=== PATIENT | female | born 1960 | race Hispanic/Latino ===

== ENCOUNTER 2017-12-26 16:39 | Emergency (ER) | payer OTHER ==
[2017-12-26] MEDS ORDERED: predniSONE 20 MG TAB ONE (17:25)
[2017-12-26] MEDS ORDERED: FAMOTIDINE 20 MG TAB ONE (17:25)
[2017-12-26] MEDS ORDERED: DIPHENHYDRAMINE 25 MG TAB/CAP ONE (17:25)
--- NOTE | 2017-12-26 18:14 | EDPHYS ---
Physician Documentation [facility] Name: Sridevi Fernandez Age: 57 yrs Sex: Female : 1960 Arrival Date: 12/26/2017 Time: 16:46 Bed 16 Private MD: ED Physician Chip Sanchez HPI: 12/26 18:09 This 57 yrs old Female presents to ER via Ambulatory with complaints of gs Allergic Reaction. 18:09 The patient presents with itching, rash. Onset: The symptoms/episode began/occurred 3 gs day(s) ago. Associated signs and symptoms: Pertinent positives: hives, rash, Pertinent negatives: chest pain, dysphagia, shortness of breath. Possible causes: antibiotics, penicillin. Severity of symptoms: At their worst the symptoms were moderate in the emergency department the symptoms are unchanged. The patient has experienced similar episodes in the past, a few times. Historical: - Allergies: 17:13 No Known Allergies; jl7 - PMHx: 17:13 Breast Cancer with mets to bone and ovarian; jl7 - PSHx: 17:13 Mastectomy, Left; jl7 - Immunization history:: Adult Immunizations unknown. - Social history:: Smoking status: Patient/guardian denies using tobacco. - Ebola Screening: : No symptoms or risks identified at this time. ROS: 18:09 All other systems are negative. gs Exam: 18:09 Head/Face: Normocephalic, atraumatic. Eyes: Pupils equal round and reactive to light, gs extra-ocular motions intact. Lids and lashes normal. Conjunctiva and sclera are non-icteric and not injected. Cornea within normal limits. Periorbital areas with no swelling, redness, or edema. Neck: Trachea midline, no thyromegaly or masses palpated, and no cervical lymphadenopathy. Supple, full range of motion without nuchal rigidity, or vertebral point tenderness. No Meningismus. Chest/axilla: Normal chest wall appearance and motion. Nontender with no deformity. No lesions are appreciated. Cardiovascular: Regular rate and rhythm with a normal S1 and S2. No gallops, murmurs, or rubs. Normal PMI, no JVD. No pulse deficits. Respiratory: Lungs have equal breath sounds bilaterally, clear to auscultation and percussion. No rales, rhonchi or wheezes noted. No increased work of breathing, no retractions or nasal flaring. Abdomen/GI: Soft, non-tender, with normal bowel sounds. No distension or tympany. No guarding or rebound. No evidence of tenderness throughout. Back: No spinal tenderness. No costovertebral tenderness. Full range of motion. MS/ Extremity: Pulses equal, no cyanosis. Neurovascular intact. Full, normal range of motion. Neuro: Awake and alert, GCS 15, oriented to person, place, time, and situation. Cranial nerves II-XII grossly intact. Motor strength 5/5 in all extremities. Sensory grossly intact. Cerebellar exam normal. Normal gait. 18:09 Constitutional: The patient appears alert, awake. 18:09 ENT: Mouth: Lips: mild swelling of lower lip. 18:09 Skin: rash can be described as urticarial, and is diffusely located. Vital Signs: 17:13 BP 109 / 69; Pulse 97; Resp 16 S; Temp 98.6(O); Pulse Ox 100% on R/A; Weight 90.72 kg jl7 (R); Height 5 ft. 3 in. (160.02 cm) (R); Pain 6/10; 18:30 BP 108 / 75; Pulse 94; Resp 16 S; Pulse Ox 100% on R/A; jl7 17:13 Body Mass Index 35.43 (90.72 kg, 160.02 cm) jl7 MDM: 17:28 Patient medically screened. 18:09 Differential diagnosis: anaphylaxis, angioedema, urticaria. Data reviewed: vital signs, nurses notes. Response to treatment: the patient's symptoms have markedly improved after treatment, and as a result, I will discharge patient. 12/26 17:17 Order name: EKG - Nurse/Tech; Complete Time: 17:49 [facility] 12/26 17:17 Order name: EKG; Complete Time: 17:17 jl7 Administered Medications: 17:25 Drug: Benadryl 50 mg Route: PO; jl7 18:39 Follow up: Response: No adverse reaction; Marked relief of symptoms jl7 17:25 Drug: predniSONE 40 mg Route: PO; jl7 18:38 Follow up: Response: No adverse reaction; Marked relief of symptoms jl7 17:25 Drug: Pepcid 20 mg Route: PO; jl7 18:38 Follow up: Response: No adverse reaction; Marked relief of symptoms 7 Disposition: 12/26/17 18:13 Discharged to Home. Impression: Urticaria. - Condition is Stable. - Prescriptions for Pepcid 20 mg Oral Tablet - take 1 tablet by ORAL route every 12 hours for 5 days; 10 tablet. Prednisone 20 mg Oral Tablet - take 1 tablet by ORAL route once daily for 5 days; 5 tablet. Zyrtec 10 mg Oral Tablet - take 1 tablet by ORAL route once daily As needed; 20 tablet. - Medication Reconciliation Form, Thank You Letter, Antibiotic Education, Prescription Opioid Use form. - Follow up: Private Physician; When: 2 - 3 days; Reason: Re-evaluation by your physician. Signatures: Donny Roman RN RN jl7 Chip Sanchez MD MD Corrections: (The following items were deleted from the chart) 18:42 18:13 12/26/2017 18:13 Discharged to Home. Impression: Urticaria. Condition is Stable. jl7 Forms are Medication Reconciliation Form, Thank You Letter, Antibiotic Education, Prescription Opioid Use. Follow up: Private Physician; When: 2 - 3 days; Reason: Re-evaluation by your physician. gs
--- NOTE | 2017-12-26 18:14 | ER ---
Nurse's Notes [facility] Name: Sridevi Fernandez Age: 57 yrs Sex: Female : 1960 Arrival Date: 12/26/2017 Time: 16:46 Bed 16 Private MD: Diagnosis: Urticaria Presentation: 12/26 17:08 Presenting complaint: Patient states: Pt took her left over Amoxicillin d/t stepping on jl7 2 nails and wanted to prevent infection, lips began swelling 1 week ago and hives on bilateral arms began on Tuesday, pt has not taken the Amoxicillin since Tuesday. Transition of care: patient was not received from another setting of care. Onset: The symptoms/episode began/occurred last week. Anaphylaxis evaluation, chest pain. Onset of symptoms was December 19, 2017. Risk Assessment: Do you want to hurt yourself or someone else? Patient reports no desire to harm self or others. Initial Sepsis Screen: Does the patient meet any 2 criteria? No. Patient's initial sepsis screen is negative. Does the patient have a suspected source of infection? No. Patient's initial sepsis screen is negative. Care prior to arrival: None. 17:08 Method Of Arrival: Ambulatory 7 17:08 Acuity: ADRIA 3 jl7 Triage Assessment: 17:13 General: Appears in no apparent distress. uncomfortable, Behavior is calm, cooperative, jl7 appropriate for age. Pain: Complains of pain in mid-sternal area Pain does not radiate. Pain currently is 6 out of 10 on a pain scale. Neuro: Level of Consciousness is awake, alert, obeys commands, Oriented to person, place, time, situation. Cardiovascular: Heart tones S1 S2 present Patient's skin is warm and dry. Respiratory: Airway is patent Respiratory effort is even, unlabored, Respiratory pattern is regular, symmetrical, Breath sounds are clear bilaterally. Derm: Rash noted that is itchy, red, raised, on right bicep and left bicep. Historical: - Allergies: 17:13 No Known Allergies; jl7 - PMHx: 17:13 Breast Cancer with mets to bone and ovarian; jl7 - PSHx: 17:13 Mastectomy, Left; jl7 - Immunization history:: Adult Immunizations unknown. - Social history:: Smoking status: Patient/guardian denies using tobacco. - Ebola Screening: : No symptoms or risks identified at this time. Screenin:16 Abuse screen: Denies threats or abuse. Denies injuries from another. Nutritional jl7 screening: No deficits noted. Tuberculosis screening: No symptoms or risk factors identified. Fall Risk None identified. Assessment: 17:16 General: See triage assessment. Respiratory: Reports shortness of breath Airway is jl7 patent Respiratory effort is even, unlabored, Respiratory pattern is regular, symmetrical. 18:20 Reassessment: No change in condition at this time, will continue to monitor. Provider tyson7 notified and will be in to see the pt. 18:41 Reassessment: Reassessment: ERD at bedside discussing plan of care Patient states jl7 feeling better. Patient states symptoms have improved. Vital Signs: 17:13 BP 109 / 69; Pulse 97; Resp 16 S; Temp 98.6(O); Pulse Ox 100% on R/A; Weight 90.72 kg jl7 (R); Height 5 ft. 3 in. (160.02 cm) (R); Pain 6/10; 18:30 BP 108 / 75; Pulse 94; Resp 16 S; Pulse Ox 100% on R/A; jl7 17:13 Body Mass Index 35.43 (90.72 kg, 160.02 cm) jl7 ED Course: 16:46 Patient arrived in ED. mr 17:04 Chip Sanchez MD is Attending Physician. gs 17:08 Donny Roman, RN is Primary Nurse. jl7 17:12 Triage completed. jl7 17:13 Arm band placed on right wrist. jl7 17:16 Patient has correct armband on for positive identification. Bed in low position. Call jl7 light in reach. Side rails up X 1. Pulse ox on. NIBP on. 17:30 EKG done, by audiology technician. reviewed by Chip Sanchez MD. 3 18:41 No provider procedures requiring assistance completed. Patient did not have IV access jl7 during this emergency room visit. Administered Medications: 17:25 Drug: Benadryl 50 mg Route: PO; jl7 18:39 Follow up: Response: No adverse reaction; Marked relief of symptoms jl7 17:25 Drug: predniSONE 40 mg Route: PO; jl7 18:38 Follow up: Response: No adverse reaction; Marked relief of symptoms jl7 17:25 Drug: Pepcid 20 mg Route: PO; jl7 18:38 Follow up: Response: No adverse reaction; Marked relief of symptoms jl7 Outcome: 18:13 Discharge ordered by . kimberly 18:41 Discharged to home ambulatory, with family. jl7 18:41 Condition: stable 18:41 Discharge instructions given to patient, family, Instructed on discharge instructions, follow up and referral plans. medication usage, Demonstrated understanding of instructions, follow-up care, medications, Prescriptions given X 3. 18:42 Patient left the ED. jl7 Signatures: Jamila Buitrago Jahala, RN RN jl7 Chip Sanchez MD MD Regino, Milagros 3
[2017-12-26 20:16] VITALS: TEMP 98.6; O2SAT 100
[2017-12-26 20:17] VITALS: BP 108/75
--- NOTE | 2017-12-27 06:51 | EKG ---
Test Date: 2017-12-26 Test Time: 17:25:22 Hand Heel Seat Fitter: PANDA MEASUREMENT RESULTS: Intervals: Rate: 80 SD: 156 QRSD: 86 QT: 380 QTc: 438 [place]: P: 11 SD: 156 QRS: 49 T: 2 INTERPRETIVE STATEMENTS: Normal sinus rhythm Normal ECG Compared to ECG 03/14/2015 23:13:08 No significant changes Electronically Signed On 12-27-17 06:49:46 CDT by Anjum Cochran
== END 2017-12-26 18:42 | disposition home or self-care (01) ==
LOC: ER 16:39
DX: L50.9 Urticaria, unspecified (principal); Z85.3 Personal history of malignant neoplasm of breast; Z85.43 Personal history of malignant neoplasm of ovary; Z85.830 Personal history of malignant neoplasm of bone; Z90.12 Acquired absence of left breast and nipple
CPT/HCPCS: 93005; 99284; J7512

== ENCOUNTER 2020-07-30 21:34 | Emergency (ER) | payer OTHER ==
--- OUTSIDE RECORDS SUMMARY | 2020-07-30 21:37 | XMS REPORT | Continuity of Care Document ---
:1960 Author Organization [facility] t Address [facility] [place] [address] [place] [id number] Care Team Providers Name Role Phone Unavailable Unavailable Unavailable Problems This patient has no known problems. Allergies, Adverse Reactions, Alerts This patient has no known allergies or adverse reactions. Medications This patient has no known medications. Procedures This patient has no known procedures. Encounters Start End Encounter Admission Attending Care Care Encounter Source Date/Time Date/Time Type Type Clinicians Facility Department ID 2020-07-22 2020-07-22 Outpatient [id number] 11:04:00 11:04:00 2020-07-07 2020-07-07 Outpatient [id number] [facility] 09:01:00 09:01:00 2020-06-05 2020-06-05 Outpatient [facility] [id number] [facility] 10:13:00 10:13:00 2019-12-13 2019-12-13 Outpatient [id number] 07:16:00 07:16:00 Results This patient has no known results.
[2020-07-30] MEDS ORDERED: FAMOTIDINE 20 MG/2 ML VIAL IV ONE (22:01)
[2020-07-30] MEDS ORDERED: METHYLPREDNISOLONE 125 MG INJ ONE (22:01)
[2020-07-30] MEDS ORDERED: NA CHLORIDE 0.9% 1,000 ML ONE (22:06)
--- NOTE | 2020-07-30 23:22 | EDPHYS ---
Physician Documentation [facility] Name: Sridevi Fernandez Age: 60 yrs Sex: Female : 1960 Arrival Date: 07/30/2020 Time: 21:39 Bed 14 Private MD: ED Physician Kanwal Vizcaino HPI: 07/30 23:17 This 60 yrs old Female presents to ER via EMS with complaints of Allergic kb Reaction. 23:17 The patient presents with itching. Onset: The symptoms/episode began/occurred at 20:00. kb Associated signs and symptoms: Pertinent positives: rash, itching. Possible causes: antibiotics, Bactrim. At home the patient or guardian has treated the symptoms with Benadryl. Severity of symptoms: At their worst the symptoms were severe in the emergency department the symptoms are unchanged. The patient has not experienced similar symptoms in the past. The patient has not recently seen a physician. Pt reports she took a bactrim at 1930 and started itching at 1999. Has taken hydroxyzine and benadryl with no relief. Bactrim was given to treat abscess that pt had I\T\D on today. Historical: - Allergies: 22:55 Bactrim; wh - PMHx: 22:55 Breast Cancer with mets to bone and ovarian; - Immunization history:: Adult Immunizations unknown. - Social history:: Smoking status: unknown. ROS: 23:17 Skin: Positive for rash, diffusely. kb 23:17 All other systems are negative. 23:50 Constitutional: Negative for fever, chills, and weight loss. kb Exam: 23:17 Constitutional: This is a well developed, well nourished patient who is awake, alert, kb and in no acute distress. Head/Face: Normocephalic, atraumatic. ENT: Moist Mucous membranes Cardiovascular: Regular rate and rhythm with a normal S1 and S2. No gallops, murmurs, or rubs. No pulse deficits. Respiratory: Respirations even and unlabored. No increased work of breathing, no retractions or nasal flaring. Abdomen/GI: Soft, non-tender. No distention MS/ Extremity: Pulses equal, no cyanosis. Neurovascular intact. Full, normal range of motion. Neuro: Awake and alert, GCS 15, oriented to person, place, time, and situation. Moves all extremities. Normal gait. Psych: Awake, alert, with orientation to person, place and time. Behavior, mood, and affect are within normal limits. 23:17 Skin: abscess, that is small, of the left tricep, rash a mild rash is noted, rash can be described as erythematous, and is diffusely located. Vital Signs: 21:40 BP 108 / 80; Pulse 115; Resp 20; Temp 97.7; Pulse Ox 100% on R/A; wh 22:54 BP 136 / 70; Pulse 103; Resp 18; Pulse Ox 99% on R/A; wh 23:43 BP 113 / 71; Pulse 99; Resp 18; Pulse Ox 97% on R/A; MDM: 21:40 Patient medically screened. kb 23:20 Data reviewed: vital signs, nurses notes. Data interpreted: Pulse oximetry: on room air kb is 99 %. Interpretation: normal. Counseling: I had a detailed discussion with the patient and/or guardian regarding: the historical points, exam findings, and any diagnostic results supporting the discharge/admit diagnosis, the need for outpatient follow up, a family practitioner, to return to the emergency department if symptoms worsen or persist or if there are any questions or concerns that arise at home. ED course: Symptoms have resolved. 07/30 21:40 Order name: IV Start; Complete Time: 21:44 kb Administered Medications: 21:40 Drug: NS 0.9% 1000 ml Route: IV; Rate: 1000 ml; Site: right antecubital; 23:45 Follow up: Response: No adverse reaction; IV Status: Completed infusion 21:42 Drug: Pepcid (famotidine) 20 mg Route: IVP; Site: right antecubital; 23:45 Follow up: Response: No adverse reaction; Marked relief of symptoms 21:44 Drug: SOLU-Medrol (methylPrednisoLONE) 125 mg Route: IVP; Site: right antecubital; 23:45 Follow up: Response: No adverse reaction; Marked relief of symptoms Disposition: 23:22 Chart complete. kb Disposition: 07/30/20 23:21 Discharged to Home. Impression: Allergy status to sulfonamides status. - Condition is Stable. - Discharge Instructions: Allergies, [id number]. - Prescriptions for Keflex 500 mg Oral Capsule - take 1 capsule by ORAL route every 8 hours for 10 days; 30 capsule. Pepcid 20 mg Oral Tablet - take 1 tablet by ORAL route every 12 hours for 5 days; 10 tablet. Prednisone 20 mg Oral Tablet - take 1 tablet by ORAL route once daily for 5 days; 5 tablet. - Medication Reconciliation Form, Thank You Letter, Antibiotic Education, Prescription Opioid Use form. - Follow up: Emergency Department; When: As needed; Reason: Worsening of condition. Follow up: Private Physician; When: 2 - 3 days; Reason: Recheck today's complaints, Continuance of care, Re-evaluation by your physician. Signatures: Kisha Simons, TEAGAN-C VIDEOGAME DESIGNER-Den Britton RN RN wh Corrections: (The following items were deleted from the chart) 23:19 23:17 Associated signs and symptoms: Pertinent positives: itching, kb kb 23:21 23:17 Pt reports she took a bactrim at 1930 and started itching at 1999. Has taken kb hydroxyzine and benadryl with no relief.. kb 23:46 23:21 07/30/2020 23:21 Discharged to Home. Impression: Allergy status to sulfonamides wh status. Condition is Stable. Forms are Medication Reconciliation Form, Thank You Letter, Antibiotic Education, Prescription Opioid Use. Follow up: Emergency Department; When: As needed; Reason: Worsening of condition. Follow up: Private Physician; When: 2 - 3 days; Reason: Recheck today's complaints, Continuance of care, Re-evaluation by your physician. kb
--- NOTE | 2020-07-30 23:22 | ER ---
Nurse's Notes [facility] Name: Sridevi Fernandez Age: 60 yrs Sex: Female : 1960 Arrival Date: 07/30/2020 Time: 21:39 Bed 14 Private MD: Diagnosis: Allergy status to sulfonamides status Presentation: 07/30 21:40 Chief complaint: EMS states: C/O allergic reaction, itching and hives, Pt was just wh started on Bactrim S/P I \T\ D today. Coronavirus screen: Client denies travel out of the [place] in the last 14 days. Client indicates they have traveled out of the [place] in the last 14 days. Ebola Screen: Patient negative for fever greater than or equal to 101.5 degrees Fahrenheit, and additional compatible Ebola Virus Disease symptoms Patient denies exposure to infectious person. Onset: The symptoms/episode began/occurred acutely. Anaphylaxis evaluation, the patient reports or I have noted the following symptoms which indicate a significant risk of anaphylaxis: urticaria. Initial Sepsis Screen: Does the patient meet any 2 criteria? HR > 90 bpm. Does the patient have a suspected source of infection? Yes: Skin breakdown/wound. Risk Assessment: Do you want to hurt yourself or someone else? Patient reports no desire to harm self or others. Onset of symptoms was July 30, 2020. 21:40 Method Of Arrival: EMS: [facility] 21:40 Acuity: ADRIA 4 Historical: - Allergies: 22:55 Bactrim; - PMHx: 22:55 Breast Cancer with mets to bone and ovarian; - Immunization history:: Adult Immunizations unknown. - Social history:: Smoking status: unknown. Screenin:40 Abuse screen: Denies threats or abuse. Denies injuries from another. Nutritional screening: No deficits noted. Tuberculosis screening: No symptoms or risk factors identified. Fall Risk None identified. Assessment: 21:45 General: Appears distressed, uncomfortable, Behavior is cooperative. Pain: Denies pain. wh Neuro: Level of Consciousness is awake, alert, obeys commands, Oriented to person, place, time, situation, Appropriate for age. Cardiovascular: Heart tones S1 S2. Respiratory: Airway is patent Respiratory effort is even, unlabored, Respiratory pattern is regular, symmetrical, Breath sounds are clear bilaterally. GI: Abdomen is flat, non-distended. : No signs and/or symptoms were reported regarding the genitourinary system. EENT: Throat is pink. Derm: Rash noted that is itchy, urticaria, Reports itching. Musculoskeletal: Circulation, motion, and sensation intact. 22:54 Reassessment: Patient appears in no apparent distress at this time. No changes from previously documented assessment. Patient and/or family updated on plan of care and expected duration. Pain level reassessed. Patient is alert, oriented x 3, equal unlabored respirations, skin warm/dry/pink. Patient states feeling better. Patient states symptoms have improved. 23:43 Reassessment: Patient appears in no apparent distress at this time. Patient states wh feeling better. Patient states symptoms have improved. Vital Signs: 21:40 BP 108 / 80; Pulse 115; Resp 20; Temp 97.7; Pulse Ox 100% on R/A; wh 22:54 BP 136 / 70; Pulse 103; Resp 18; Pulse Ox 99% on R/A; wh 23:43 BP 113 / 71; Pulse 99; Resp 18; Pulse Ox 97% on R/A; ED Course: 21:39 Patient arrived in ED. cf2 21:39 Den Schmidt, STEVE is Primary Nurse. wh 21:40 Kisha Simons F[facility]-C [facility]. kb 21:40 Kanwal Vizcaino MD is Attending Physician. kb 21:45 Arm band placed on right wrist. wh 21:45 Patient has correct armband on for positive identification. Bed in low position. Call light in reach. Side rails up X 1. Pulse ox on. NIBP on. 22:00 Inserted saline lock: 22 gauge in right hand, using aseptic technique. Blood collected. ds4 22:46 Triage completed. wh 23:44 No provider procedures requiring assistance completed. IV discontinued, intact, bleeding controlled, No redness/swelling at site. Administered Medications: 21:40 Drug: NS 0.9% 1000 ml Route: IV; Rate: 1000 ml; Site: right antecubital; 23:45 Follow up: Response: No adverse reaction; IV Status: Completed infusion 21:42 Drug: Pepcid (famotidine) 20 mg Route: IVP; Site: right antecubital; 23:45 Follow up: Response: No adverse reaction; Marked relief of symptoms 21:44 Drug: SOLU-Medrol (methylPrednisoLONE) 125 mg Route: IVP; Site: right antecubital; 23:45 Follow up: Response: No adverse reaction; Marked relief of symptoms Outcome: 23:21 Discharge ordered by . michael 23:45 Discharged to home via wheelchair, with family, with friend. 23:45 Condition: stable 23:45 Discharge instructions given to patient, family, Instructed on discharge instructions, follow up and referral plans. medication usage, POC Demonstrated understanding of instructions, follow-up care, medications, POC Prescriptions given X 3. 23:46 Patient left the ED. Signatures: Kisha Simons, ERLINC TEAGAN-Dick Mccollum ds4 Den Schmidt RN RN Angel Lara cf2
[2020-07-31 02:13] VITALS: TEMP 97.7
[2020-07-31 02:17] VITALS: BP 113/71; O2SAT 97
== END 2020-07-30 23:46 | disposition home or self-care (01) ==
LOC: ER 21:34
DX: L27.0 Generalized skin eruption due to drugs and medicaments taken internally (principal); T37.0X5A Adverse effect of sulfonamides, initial encounter; Z85.3 Personal history of malignant neoplasm of breast
CPT/HCPCS: 96361; 96375; 96374; 99284; J7030; J2930